=== PATIENT | male | born 1970 | race American Indian/Alaskan Native ===

== ENCOUNTER 2017-11-15 09:06 | Emergency (ER) | payer MEDICAID ==
[2017-11-15 09:17] VITALS: BP 117/79; PULSE 63; RESP 20; TEMP 98.5; O2SAT 99
[2017-11-15] MEDS ORDERED: Lidocaine 5% Patch TD STA (09:27)
--- NOTE | 2017-11-15 09:30 | C.PDOC ---
History Of Present Illness 46 years old male with history of hypertension presents to the ED complaining of left lower back pain associated with left lower extremity numbness onset 1 week. Patient reports pain is 8 out of 10 scale and radiates to his buttocks and legs. He denies taking any medication for pain or experiencing any injury, fall, heavy lifting, headache, nausea, fever, vomiting, chills or neck pain. PMD: non provided Time Seen by Provider: 11/15/17 09:15 Chief Complaint (Nursing): Lower Extremity Problem/Injury History Per: Patient History/Exam Limitations: no limitations Onset/Duration Of Symptoms: Days (7) Past Medical History Reviewed: Historical Data, Nursing Documentation, Vital Signs Vital Signs: Last Vital Signs Temp 98.5 F 11/15/17 09:13 Pulse 63 11/15/17 09:13 Resp 20 11/15/17 09:13 BP 117/79 11/15/17 09:13 Pulse Ox 99 11/15/17 14:11 - Medical History PMH: HTN Surgical History: No Surg Hx Family History: States: Unknown Family Hx - Social History Hx Tobacco Use: No Hx Alcohol Use: No Hx Substance Use: No - Immunization History Hx Tetanus Toxoid Vaccination: No Hx Influenza Vaccination: No Hx Pneumococcal Vaccination: No Review Of Systems Except As Marked, All Systems Reviewed And Found Negative. Constitutional: Negative for: Fever, Chills Gastrointestinal: Negative for: Nausea, Vomiting Musculoskeletal: Positive for: Back Pain (left lower). Negative for: Neck Pain Neurological: Positive for: Numbness (left lower extremity). Negative for: Headache Physical Exam - Physical Exam Appears: Non-toxic, No Acute Distress Skin: Normal Color Neck: Normal, Normal ROM, Supple Back: Vertebral Tenderness (On palpation) Extremity: Tenderness (to buttocks) Neurological/Psych: Oriented x3 ED Course And Treatment O2 Sat by Pulse Oximetry: 99 (RA) Pulse Ox Interpretation: Normal Medical Decision Making Medical Decision Makin --Valium 5 mg PO --Motrin 600 mg PO --Lidocaine 5% 1 ea TD 0928 Patient is discharge with Motrin for Sciatica. Disposition Counseled Patient/Family Regarding: Diagnosis, Need For Followup, Rx Given - Disposition Disposition: HOME/ ROUTINE Disposition Time: :28 Condition: STABLE Additional Instructions: Take medications as indicated. Follow up with your doctor for further evaluation. Prescriptions: diaZEpam [Valium] 5 mg PO TID #12 tab Ibuprofen [Motrin] 600 mg PO TID #15 tab Lidocaine 5% [Lidoderm] 1 ea TD DAILY #1 patch Instructions: Sciatica Forms: General Discharge Instructions, [facility] (Swedish), Work Excuse - POA Present On Arrival: None - Clinical Impression Clinical Impression: Sciatica - Scribe Statement The provider has reviewed the documentation as recorded by the Scribe (Giselle Diop)
[2017-11-15] MEDS ORDERED: Lidocaine 5% Patch TD ONE (09:32)
== END 2017-11-15 09:39 | disposition home or self-care (01) ==
LOC: C.ER 09:06
DX: M54.30 Sciatica, unspecified side (principal)